=== PATIENT | female | born 1960 | race Hispanic/Latino ===

== ENCOUNTER 2019-05-13 15:43 | Emergency (ER) | payer SELFPAY ==
[~2019-05-13 15:43] MED LIST: ISOVUE-370 76%-LOCM 1 ML ONE
[2019-05-13] MEDS ORDERED: Ondansetron ODT 4 MG TAB ONE (16:25)
[2019-05-13] MEDS ORDERED: HYDROcodone/Acetaminophen 5/325 mg Tablet ONE (16:25)
[2019-05-13 16:34] LABS: Bilirubin Negative (Negative); Blood, Urine Negative (Negative); Clarity Clear (Clear); Glucose, Urine (Dipstick) Normal (Negative); Leukocyte 75 Leu/uL (Negative); Nitrite Negative (Negative); Protein, Urine (Dipstick) 50 mg/dL (Neg-Trace); Urobilinogen 6 mg/dL (Less than 2)
[2019-05-13 16:35] LABS: Bacteria/HPF 1+ HPF (None Seen)
[2019-05-13 17:17] LABS: Hemoglobin 11.8 g/dL (12.0-16.0); Mean Corpuscular HGB CONC 35.2 g/dL (32.0-36.0); RBC Distribution Width 11.5 % (11.5-14.5); Red Blood Cell (RBC) Count 3.27 mill/uL (4.20-5.40); White Blood Cell (WBC) Count 7.1 thou/uL (4.8-10.8)
[2019-05-13 17:41] LABS: ALT (SGPT) 18 U/L (8-55); AST (SGOT) 24 U/L (5-34); Albumin 4.1 g/dL (3.5-5.0); Alkaline Phosphatase 62 U/L (40-150); Anion Gap 12 mmol/L (10-20); BUN (Urea Nitrogen) 12 mg/dL (9.8-20.1); Bilirubin, Total 1.4 mg/dL (0.2-1.2); Calc. Creatinine Clearance 0 mL/min (70-130); Calcium 9.5 mg/dL (7.8-10.44); Carbon Dioxide 24 mmol/L (22-29); Chloride 93 mmol/L (98-107); Estimated GFR-MDRD 71; Glucose 102 mg/dL (70-105); Lipase 23 U/L (8-78); Potassium 3.2 mmol/L (3.5-5.1); Protein, Total 8.1 g/dL (6.0-8.3); Sodium 126 mmol/L (136-145)
[2019-05-13 17:42] LABS: #Basophils 0.1 thou/uL (0.0-0.2); #Lymphocytes 0.5 thou/uL (1.20-3.40); #Monocytes 0.8 thou/uL (0.11-0.59); #Neutrophils 5.8 thou/uL (1.40-6.50); %Basophils 0.7 % (0.0-1.0); %Eosinophils 0.4 % (0.0-10.0); %Monocytes 10.9 % (0.0-10.0); %Neutrophils 81.1 % (42.0-75.0); Mean Platelet Volume 8.4 fL (7.4-10.4); Platelet Count 108 thou/uL (130-400); Platelet Morphology Comment Appears Decreased
--- NOTE | 2019-05-13 18:29 | CT ---
ABDOMEN CT WITH CONTRAST PELVIC CT WITH CONTRAST: 05/13/19 HISTORY: Fever, chills. Abdominal pain. Dysuria. COMPARISON: None. FINDINGS: Scarring and atelectasis in the right lower lobe. There is a bleb in the left lower lobe measuring 1. 4 cm. Incompletely evaluated opacity in what is likely the middle lobe. Dedicated chest radiograph is recom mended. Heart size is within normal limits. No pericardial effusion. The visualized aorta has a dora l caliber. No periaortic fat stranding. Portal vein is patent. Mild enhancement of the gallbladder wall with a small amount of pericholecysti c fluid. Liver, spleen, pancreas, and adrenal glands have appropriate attenuation and enhancement. No gastrohepatic, retrocrural or periportal lymphadenopathy. There are nonspecific pericaval and zane rohepatic lymph nodes. Nonspecific lymph node in the gastrohepatic region measures 0.8 cm in maximum dimension. No mesenteric mass, lymphadenopathy, free air or free fluid. Symmetric enhancement of the kidneys. Bilaterally, no obstructive uropathy. Limited evaluation of the alimentary canal by lack of oral contrast. Multiple normal caliber small ruma wel loops. Ileocecal junction is normal. Normal caliber appendix is identified. Fecal material in a n ondistended, nondilated colon. Occasional diverticulum. No diverticulitis. PELVIC CT: Decompressed urinary bladder. No pelvic mass, lymphadenopathy, free air or free fluid. Hysterectomy c hanges are noted. OSSEOUS STRUCTURES: There are no lytic or blastic lesions. IMPRESSION: 1. Enhancement of the gallbladder wall with pericholecystic fluid. Right upper quadrant ultrasou nd is recommended to assess for cholecystitis. 2. Focal opacity in the right lung, likely representing a middle lobe infiltrate. Incomplete toño luation. Chest radiograph is recommended. POS: PPP
--- NOTE | 2019-05-13 18:48 | RAD ---
RADIOGRAPH CHEST 2 VIEW: DATE: 05/13/2019 TIME: 6:39 PM HISTORY: 58-year-old female with fever and chills COMPARISON: 08/24/2012 FINDINGS: There is a new finding of a wedge-shaped pulmonary opacity at the right midlung zone with broad base against the lateral pleural surface and broad base against the undersurface of the minor fissure.. This corresponds to what was seen on the abdominal CT today. The rest of the lungs are clear. No pleu ral effusion, cardiomegaly, pneumothorax, or pulmonary edema. IMPRESSION: Focal wedge-shaped opacity at the lateral aspect of the right middle lobe. Differential diagnosis inc ludes: Subsegmental atelectasis, pneumonia, and pulmonary infarction.
== END 2019-05-13 18:50 | disposition home or self-care (01) ==
LOC: ERS 15:43
DX: J18.9 Pneumonia, unspecified organism (principal); I10 Essential (primary) hypertension; F17.210 Nicotine dependence, cigarettes, uncomplicated; Z79.899 Other long term (current) drug therapy; Z71.6 Tobacco abuse counseling
CPT/HCPCS: 36415; 71046; 74177; 80053; 81003; 81015; 83605; 83690; 85025; 87040; 87086; 99406; Q0162

== ENCOUNTER 2019-05-16 16:15 | Inpatient (IN) | payer SELFPAY ==
[2019-05-16 17:54] LABS: Hemoglobin 11.4 g/dL (12.0-16.0); Mean Corpuscular HGB CONC 34.6 g/dL (32.0-36.0); Mean Corpuscular Hemoglobin 35.1 pg (27.0-31.0); Mean Platelet Volume 8.7 fL (7.4-10.4); Platelet Count 133 thou/uL (130-400); RBC Distribution Width 11.8 % (11.5-14.5); Red Blood Cell (RBC) Count 3.24 mill/uL (4.20-5.40); White Blood Cell (WBC) Count 4.6 thou/uL (4.8-10.8)
[2019-05-16 18:15] LABS: ALT (SGPT) 33 U/L (8-55); AST (SGOT) 51 U/L (5-34); Albumin 3.9 g/dL (3.5-5.0); Alkaline Phosphatase 72 U/L (40-150); Anion Gap 13 mmol/L (10-20); BUN (Urea Nitrogen) 35 mg/dL (9.8-20.1); Bilirubin, Total 0.5 mg/dL (0.2-1.2); Calc. Creatinine Clearance 0 mL/min (70-130); Calcium 9.8 mg/dL (7.8-10.44); Carbon Dioxide 23 mmol/L (22-29); Chloride 94 mmol/L (98-107); Estimated GFR-MDRD 40; Globulin 4.2 g/dL (2.4-3.5); Glucose 91 mg/dL (70-105); Lipase 91 U/L (8-78); Potassium 3.1 mmol/L (3.5-5.1); Protein, Total 8.1 g/dL (6.0-8.3); Sodium 127 mmol/L (136-145)
[2019-05-16 18:19] LABS: Band 6 % (5-11); Eosinophils 3 % (0-10); Lymphocytes 20 % (21-51); MDiff Complete? YES; Macrocytosis SLIGHT = 6-15 cells (100X) (0-5/hpf); Monocytes 20 % (0-10); Neutrophil 43 % (42-75); Platelet Morphology Comment Appears Adequate; Polychromasia SLIGHT = 2-3 cells (100X) (0-2/hpf); Reactive Lymphocytes 8 % (0-10)
[2019-05-16 18:37] LABS: MONO NEGATIVE CONTROL ZONE White (Negative) (White); MONO POSITIVE CONTROL Pink Line (Positive) (PINK/RED); Mononucleosis NEGATIVE (NEGATIVE)
[2019-05-16] MEDS ORDERED: Morphine 4 MG/ML VIAL ONE (18:50)
[2019-05-16] MEDS ORDERED: Ondansetron PF 4 MG/2 ML Vial ONE (18:51)
--- NOTE | 2019-05-16 19:59 | ULT ---
GALLBLADDER ULTRASOUND: History: Right upper quadrant pain. Comparison: 05-13-19 CT study. FINDINGS: Real-time imaging of the right upper quadrant shows a thick walled gallbladder. The wall measures in the 5 mm range. There is some small nonshadowing echogenic densities along the gallbladder wall which could represent adherent nonshadowing cholesterol stones versus small polyps. The common duct is 3 m m. The liver measures 14 cm in length. It is of increased echogenicity suggesting fatty change. The pancreas is obscured. Right kidney is not obstructed. IMPRESSION: 1. Thick walled gallbladder. There are some nonshadowing echogenic foci along the gallbladder wall wh ich do not move with changes in patient positioning. This could indicate small polyps, less likely no nshadowing cholesterol type stones. 2. Fatty change of the liver. POS: MARIA GUADALUPE
[2019-05-16 20:21] LABS: Bilirubin Negative (Negative); Blood, Urine Negative (Negative); Clarity Turbid (Clear); Glucose, Urine (Dipstick) Normal (Negative); Leukocyte 25 Leu/uL (Negative); Nitrite Negative (Negative); Protein, Urine (Dipstick) 30 mg/dL (Neg-Trace); RBC/HPF 0-3 HPF (0-3); Squamous Epithelial 0-3 HPF (0-3)
[2019-05-16 20:24] LABS: Bacteria/HPF 1+ HPF (None Seen)
--- NOTE | 2019-05-16 20:59 | RAD ---
XR Chest Pa Lat STANDARD HISTORY: Cough and fever COMPARISON: 05/13/2019 study FINDINGS: Heart size slightly enlarged. There is a worsening lateral segment right middle lobe infilt rate present. The left lung is clear. IMPRESSION: Increased opacification within the right middle lobe consistent with increasing infiltrat e.
[2019-05-16 23:32] VITALS: BMI 24.3
[2019-05-16] MEDS ORDERED: Cefepime 2 GM in Sodium Chloride 0.9% 100 ML IVPB SCH (23:59)
--- NOTE | 2019-05-17 00:08 | PDOC.EVN ---
Event Note - Event Note Event Note: H&P dictated 189097
--- NOTE | 2019-05-17 00:44 | HP ---
CHIEF COMPLAINT: Fever. HISTORY OF PRESENT ILLNESS: Ms. Santiago is a 58-year-old female with past medical history of alcohol abuse, hypertension, presented to the emergency room for the second time in the same week with persistent fever, cough combined with sputum, chills and shortness of breath. The patient recently was in the emergency room and was diagnosed with pneumonia and was sent home on [employer]. The patient took the antibiotic without any improvement. Workup in the emergency room showed worsening of right middle lobe consolidation. Septic workup done in the ED. The patient is on IV antibiotics. The patient is being admitted to the hospital for further management. PAST MEDICAL HISTORY: Hypertension. PAST SURGICAL HISTORY: 1. Appendectomy. 2. Hysterectomy. SOCIAL HISTORY: She drinks alcohol every day, about 5 drinks a day. She denies other drug abuse. She smokes half to one pack a day. ALLERGIES: ALLERGIC TO CODEINE? HOME MEDICATIONS: Please see home medication reconciliation form for updated medications. FAMILY HISTORY: Reviewed and noncontributory. REVIEW OF SYSTEMS: Review of 14 systems negative except what is mentioned in the history of present illness. PHYSICAL EXAMINATION: GENERAL: The patient is awake, alert, in mild distress. VITAL SIGNS: Blood pressure 130/73, pulse is 69, respiratory rate is 20, pulse oximetry is 98% on room air. HEAD: Normocephalic, atraumatic. NECK: Supple. No JVD. CHEST: Bronchial breath sounds, right chest anteriorly. HEART: S1, S2. Regular. ABDOMEN: Soft. Right upper quadrant tenderness. Bowel sounds present NEUROLOGIC: Awake, alert, oriented x3. PSYCHIATRIC: Normal mood. EXTREMITIES: No clubbing, or cyanosis. LABORATORY DATA: WBC count 4.6, hemoglobin 11.4, platelets 133. Sodium is 127, potassium 3.1, glucose is 91, BUN is 35, creatinine 1.3. Chest x-ray shows worsening of the right middle lobe opacifications. Abdominal ultrasound was done, which showed thickened gallbladder with echogenic foci along the gallbladder, which did not move with change in patient position. This could indicate small polyps, less likely non-shadowing cholesterol type stones. ASSESSMENT: 1. Pneumonia, community-acquired, failed outpatient therapy. 2. Abdominal pain. 3. Hypokalemia. 4. Hyponatremia. 5. Acute kidney injury. 6. Hypertension. 7. Alcohol abuse. PLAN: 1. Admit. 2. Septic workup including blood cultures. 3. IV antibiotics. The patient has failed outpatient therapy with azithromycin. 4. IV fluids. 5. Reconcile home medications. 6. DVT prophylaxis. Early ambulation. 7. Expected length of stay 2 midnights or more. Job ID: [id number]
[2019-05-17] MEDS: Sodium Chloride 0.9% 1,000 ML IV SCH ×3 (00:54→21:03)
[2019-05-17] MEDS ORDERED: Vancomycin HCl 1 GM in Premix Bag 1 BAG IVPB SCH (01:00)
[2019-05-17] MEDS: Temazepam 15 MG CAP PO PRN ×2 (01:18→21:03)
[2019-05-17 06:28] LABS: Anion Gap 10 mmol/L (10-20); BUN (Urea Nitrogen) 24 mg/dL (9.8-20.1); Calc. Creatinine Clearance 80 mL/min (70-130); Carbon Dioxide 23 mmol/L (22-29); Chloride 101 mmol/L (98-107); Estimated GFR-MDRD 80; Glucose 78 mg/dL (70-105); Potassium 3.2 mmol/L (3.5-5.1); Sodium 131 mmol/L (136-145)
[2019-05-17 07:27] LABS: Band 3 % (5-11); Eosinophils 5 % (0-10); Hemoglobin 10.9 g/dL (12.0-16.0); Lymphocytes 31 % (21-51); MDiff Complete? YES; Macrocytosis SLIGHT = 6-15 cells (100X) (0-5/hpf); Mean Corpuscular HGB CONC 34.6 g/dL (32.0-36.0); Mean Corpuscular Hemoglobin 35.2 pg (27.0-31.0); Mean Platelet Volume 8.9 fL (7.4-10.4); Monocytes 21 % (0-10); Neutrophil 40 % (42-75); Platelet Count 109 thou/uL (130-400); Platelet Morphology Comment Appears Decreased; Polychromasia SLIGHT = 2-3 cells (100X) (0-2/hpf); RBC Distribution Width 11.8 % (11.5-14.5); Red Blood Cell (RBC) Count 3.09 mill/uL (4.20-5.40); White Blood Cell (WBC) Count 2.9 thou/uL (4.8-10.8)
[2019-05-17] MEDS ORDERED: Carvedilol 6.25 MG TAB PO SCH (10:45)
[2019-05-17] MEDS ORDERED: Lisinopril 20 MG TAB PO SCH (10:45)
--- NOTE | 2019-05-17 11:59 | PDOC.EVN ---
Event Note - Event Note Event Note: Seen and examined. Patient asks for Nicotine patch. Walking the halls, breathing well on room air. States that she is feeling better than when she first came into the hospital. Feeling weak overall. Likely D/c in the next 24- 48 hours if continues to improve.
[2019-05-17] MEDS: Nicotine 14 MG PATCH TD SCH (12:02)
[2019-05-17] MEDS: Acetaminophen 325 MG TAB PO PRN (14:27)
[2019-05-18] MEDS: Sodium Chloride 0.9% 1,000 ML IV SCH (06:15)
[2019-05-18 07:53] VITALS: TEMP 98.1
[2019-05-18] MEDS ORDERED: Lisinopril 20 MG TAB PO SCH (09:00)
[2019-05-18] MEDS ORDERED: Carvedilol 6.25 MG TAB PO SCH (09:00)
[2019-05-18] MEDS: Acetaminophen 325 MG TAB PO PRN (09:49)
[2019-05-18] MEDS ORDERED: Potassium Chloride 20 MEQ TAB PO SCH (10:00)
--- NOTE | 2019-05-18 12:11 | DIS ---
DATE OF ADMISSION: 05/16/2019 DATE OF DISCHARGE: 05/18/2019 PRIMARY CARE PHYSICIAN: Zoey Fletcher, nurse practitioner at [facility]. CHIEF COMPLAINT/REASON FOR ADMISSION: Fever. PRINCIPAL DIAGNOSIS ON ADMISSION: Community-acquired pneumonia, with failure of outpatient therapy. DISCHARGE DIAGNOSES: 1. Community-acquired pneumonia, right middle lobe, in the context of tobacco dependence and alcohol dependence. 2. Abdominal pain, resolved. 3. Hypokalemia, persistent. 4. Hyponatremia, improved. 5. Acute kidney injury in the context of hypovolemia/dehydration, improved. 6. Essential hypertension. 7. Leukopenia, likely secondary to chronic alcohol abuse. 8. Macrocytosis, secondary to chronic alcohol abuse. STUDIES/PROCEDURES: Chest x-ray on 05/16/2019, right middle lobe opacification/infiltrate. HOSPITAL COURSE: Ms. Santiago is a pleasant 58-year-old female, with medical comorbidities including tobacco dependence, as well as alcohol abuse and essential hypertension. She presented to the emergency room for the second time in the same week, complaining of fever, cough/sputum, chills, and dyspnea. She had previously been seen in the ER, diagnosed with pneumonia, and received azithromycin course. Despite taking the medications, reported no interval improvement. She returned to the emergency department, admission recommended. She was placed on IV antibiotic therapy. Additionally, on admission noted to have mild hyponatremia with a serum sodium of 127. BUN 35 and creatinine 1.36 on admission, improved to 24 and 0.75 after IV fluids as above. Additionally, serum sodium 132 on the following hospital day. She has no oxygen requirement, and does feel improved today relative to her admission. She has manifested no fever during her in-hospital stay. Her white blood cell count on admission was 4.6, is 2.9 at the time of discharge. MCV 102 , all likely reflective of her underlying alcohol abuse. 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 She is tolerating a diet, able to tolerate oral antibiotics, is up walking in the halls, and has no oxygen requirement. Accordingly, appears stable at this time for transition to home in the care of her family. Prior to discharge, Pneumovax recommended/ordered. Additionally, oral potassium repletion recommended and ordered. PHYSICAL EXAMINATION: LUNGS: With good aeration bilaterally, some adventitial breath sounds in the right middle lobe. No dullness. No egophony. HEART: Regular rate and rhythm. EXTREMITIES: No significant lower extremity edema. MEDICATIONS AT DISCHARGE: As follows; 1. Augmentin 875/125 one p.o. b.i.d. for 5 days. 2. Carvedilol 12.5 mg p.o. daily (this is her home medication). 3. Lisinopril/hydrochlorothiazide 20/25 one p.o. once daily, same as admission. Over the counter nicotine patches. Education provided regarding alcohol cessation and nicotine cessation. These remained her risk factors for recurrent pneumonia. DIET: Regular diet as tolerated. ACTIVITY: As tolerated. FOLLOWUP: Follow up with KEYANA Jimenez in 1 week. TIME SPENT: Time spent on discharge planning/care today is 45 minutes. Job ID: [id number] MTDD
[2019-05-18 12:12] VITALS: BP 109/71
[2019-05-18] MEDS: Nicotine 14 MG PATCH TD SCH (12:24)
--- NOTE | 2019-05-19 05:15 | PQF ---
ALLEN POND KATE [id number] CLINICAL DOCUMENTATION CLARIFICATION FORM: POST DISCHARGE Addendum to original discharge summary date: ____ Late entry note date: __ DATE: 05-19-2019 ATTN: Aniyah Arambula Please exercise your independent, professional judgment in responding to the clarification form. Clinical indicators are provided on the bottom of this form for your review Based on the below indicators please clarify what the patient actually has Please check appropriate box(es): [ ] Sepsis due to: Community Acquired Pneumonia [ x ] Localized infection without sepsis [ ] Other diagnosis please specify: Does not meet sepsis criteria [ ] Unable to determine In addition, please specify: Present on Admission (POA): [ ] Yes [ ] No [ ] Unable to determine For continuity of documentation, please document condition throughout progress notes and discharge summary. Thank You. CLINICAL INDICATORS: HP 05/[address] Manzano persistent fever, cough combined with sputum, chills and SOB HP 05/[address] Manzano took antibiotic without any improvement DS 05/[address] García Community Acquired Pneumonia, with failure of outpatient therapy DS 05/[address] García Acute kidney injury in the context of hypovolemia/ dehydration, improved DS 05/[address] García Leukopenia likely secondary to chronic alcohol abuse Laboratory WBC=4.6, 2.9 Vital signs:HR=921/73, 119/80, 116/71, 95/60 Pulse=69, 72, 69, 74 Respi=20, 18, 21, 19 temp=98.9 RISK FACTORS: ZAYDA Manzano- Alcohol abuse HP Dr. Manzano- History of Pneumonia TREATMENTS: ZAYDA Manzano- Septic work up done in ED including blood cultures HP Dr. Manzano-IV fluids Imaging- Chest Xray Imaging- Abdominal Ultrasound NOV 07- Levaquin 750 mg IV NOV 07- Maxipime 2 gm IV (This form is maintained as a part of the permanent medical record) 2014 [employer]. All Rights Reserved Cristina [email or web address] [not provided] MTDD
== END 2019-05-18 12:57 | disposition home or self-care (01) | DRG 194 ==
LOC: ERS 16:15 → T4-B 21:29
PROVIDERS: ADMIT Internal Medicine; ATTEND Internal Medicine
DX: J18.1 Lobar pneumonia, unspecified organism (principal); E87.1 Hypo-osmolality and hyponatremia; N17.9 Acute kidney failure, unspecified; I10 Essential (primary) hypertension; E87.6 Hypokalemia; F10.20 Alcohol dependence, uncomplicated; R10.9 Unspecified abdominal pain; E86.1 Hypovolemia; E86.0 Dehydration; D72.818 Other decreased white blood cell count; D75.89 Other specified diseases of blood and blood-forming organs; F17.210 Nicotine dependence, cigarettes, uncomplicated; Z87.01 Personal history of pneumonia (recurrent); Z90.49 Acquired absence of other specified parts of digestive tract; Z90.710 Acquired absence of both cervix and uterus; Z79.899 Other long term (current) drug therapy; Z88.5 Allergy status to narcotic agent
CPT/HCPCS: 36415; 71046; 76705; 80048; 80053; 81003; 81015; 83690; 85025; 86308; 87040; 87070; 87205; 90471; 90732; 93005; 96361; 96365; G0009; J0692; J1956; J2270; J2405; J3370; J3490

== ENCOUNTER 2019-06-01 15:10 | Outpatient (CLI) | payer OTHER ==
--- NOTE | 2019-06-01 16:03 | RAD ---
TWO VIEW CHEST: 06/01/19 INDICATION: Follow-up pneumonia. COMPARISON: 05/16/19 The confluent infiltrate in the right middle lobe is again seen although it is less dense today marc cating interval improvement. Interstitial markings are increased bilaterally and stable. Heart and mediastinum unremarkable. No ef fusion. IMPRESSION: Persistent right middle lobe infiltrate although there is evidence of interval improvement when devaughn red to prior exam. Continued follow-up recommended. POS: MARIA GUADALUPE
== END 2019-06-01 15:11 | disposition home or self-care (01) ==
LOC: BICRAD 15:10
PROVIDERS: ATTEND Nurse Practitioner Family
DX: Z09 Encounter for follow-up examination after completed treatment for conditions other than malignant neoplasm (principal); R91.8 Other nonspecific abnormal finding of lung field; Z87.01 Personal history of pneumonia (recurrent)
CPT/HCPCS: 71046

== ENCOUNTER 2019-06-30 23:14 | Emergency (ER) | payer SELFPAY ==
--- NOTE | 2019-06-30 23:49 | CT ---
CT Brain WO Con: 06/30/2019 12:00 AM CLINICAL HISTORY: History of fall. IMAGING TECHNIQUE: Multiple CT images were obtained of the brain without IV contrast. COMPARISON: CT the brain dated August 24, 2012 FINDINGS: Brain: No acute infarct or hemorrhage is evident. No midline shift. Small perivascular space versus remote lacunar infarct involving the right globus pallidus is stable. Ventricles: Normal. No hydrocephalus.. Skull: Intact.. Visualized Paranasal sinuses: Clear.. Mastoid air cells:Clear. Extracranial soft tissues:Normal. IMPRESSION: No acute intracranial abnormality.
[2019-07-01] MEDS ORDERED: Acetaminophen 500 MG TAB ONE (00:16)
== END 2019-07-01 00:25 | disposition home or self-care (01) ==
LOC: ERS 23:14
DX: S09.90XA Unspecified injury of head, initial encounter (principal); F10.129 Alcohol abuse with intoxication, unspecified; Y90.8 Blood alcohol level of 240 mg/100 ml or more; F17.210 Nicotine dependence, cigarettes, uncomplicated; I10 Essential (primary) hypertension; Z87.01 Personal history of pneumonia (recurrent); Z79.899 Other long term (current) drug therapy; W17.89XA Other fall from one level to another, initial encounter
CPT/HCPCS: 36415; 70450; 80307

== ENCOUNTER 2022-01-04 13:20 | Emergency (ER) | payer SELFPAY ==
[2022-01-04 14:08] LABS: #Eosinphils 0.1 thou/uL (0.0-0.7); #Lymphocytes 0.8 thou/uL (1.20-3.40); #Monocytes 0.4 thou/uL (0.11-0.59); #Neutrophils 2.8 thou/uL (1.40-6.50); %Basophils 0.4 % (0.0-1.0); %Eosinophils 1.5 % (0.0-10.0); %Lymphocytes 18.8 % (21.0-51.0); %Monocytes 9.3 % (0.0-10.0); Hemoglobin 7.5 g/dL (12.0-16.0); Mean Corpuscular HGB CONC 33.2 g/dL (32.0-36.0); Mean Corpuscular Hemoglobin 30.2 pg (27.0-31.0); Mean Corpuscular Volume 90.9 fL (78.0-98.0); Mean Platelet Volume 8.6 fL (7.4-10.4); Platelet Count 153 thou/uL (130-400); RBC Distribution Width 15.1 % (11.5-14.5); Red Blood Cell (RBC) Count 2.48 mill/uL (4.20-5.40)
[2022-01-04 14:29] LABS: ALT (SGPT) 9 U/L (8-55); AST (SGOT) 24 U/L (5-34); Albumin 3.6 g/dL (3.5-5.0); Alkaline Phosphatase 69 U/L (40-110); Anion Gap 18 mmol/L (10-20); BUN (Urea Nitrogen) 14 mg/dL (9.8-20.1); Bilirubin, Total 0.6 mg/dL (0.2-1.2); Calc. Creatinine Clearance 0 mL/min (70-130); Calcium 8.6 mg/dL (7.8-10.44); Carbon Dioxide 22 mmol/L (22-29); Chloride 94 mmol/L (98-107); Globulin 4.6 g/dL (2.4-3.5); Glucose 81 mg/dL (70-105); Lipase 62 U/L (8-78); Potassium 3.1 mmol/L (3.5-5.1); Protein, Total 8.2 g/dL (6.0-8.3); Sodium 131 mmol/L (136-145)
[2022-01-04] MEDS ORDERED: Ondansetron ODT 8 MG TAB ONE ×2 (14:50)
[2022-01-04] MEDS ORDERED: Ondansetron ODT 4 MG TAB ONE (14:51)
== END 2022-01-04 15:15 | disposition home or self-care (01) ==
LOC: ERS 13:20
DX: D64.9 Anemia, unspecified (principal); I10 Essential (primary) hypertension; F17.210 Nicotine dependence, cigarettes, uncomplicated
CPT/HCPCS: 36415; 71045; 80053; 83690; 84484; 85025; 93005; Q0162

== ENCOUNTER 2022-01-21 11:41 | Inpatient (IN) | payer SELFPAY ==
[2022-01-21 12:16] LABS: #Lymphocytes 0.8 thou/uL (1.20-3.40); #Monocytes 0.3 thou/uL (0.11-0.59); #Neutrophils 1.6 thou/uL (1.40-6.50); %Basophils 1.7 % (0.0-1.0); %Eosinophils 1.6 % (0.0-10.0); %Lymphocytes 28.6 % (21.0-51.0); %Monocytes 10.6 % (0.0-10.0); %Neutrophils 57.6 % (42.0-75.0); Mean Corpuscular HGB CONC 30.9 g/dL (32.0-36.0); Mean Corpuscular Hemoglobin 28.5 pg (27.0-31.0); Mean Platelet Volume 8.2 fL (7.4-10.4); Platelet Count 127 thou/uL (130-400); RBC Distribution Width 20.2 % (11.5-14.5); White Blood Cell (WBC) Count 2.8 thou/uL (4.8-10.8)
[2022-01-21] MEDS ORDERED: Nitroglycerin 2% Ointment 1 INCH/1 GM Packet ONE ×2 (12:32→17:52)
[2022-01-21 12:37] LABS: ALT (SGPT) 7 U/L (8-55); AST (SGOT) 22 U/L (5-34); Albumin 3.4 g/dL (3.5-5.0); Alkaline Phosphatase 58 U/L (40-110); Anion Gap 14 mmol/L (10-20); BUN (Urea Nitrogen) 8 mg/dL (9.8-20.1); Bilirubin, Total 0.5 mg/dL (0.2-1.2); Calc. Creatinine Clearance 0 mL/min (70-130); Carbon Dioxide 23 mmol/L (22-29); Chloride 97 mmol/L (98-107); Globulin 4.6 g/dL (2.4-3.5); Glucose 79 mg/dL (70-105); Lipase 46 U/L (8-78); Sodium 131 mmol/L (136-145)
[2022-01-21] MEDS ORDERED: Furosemide 100 MG/10 ML VIAL ONE (16:48)
[2022-01-21] MEDS ORDERED: Morphine 4 MG/ML VIAL ONE (17:52)
[2022-01-21 18:01] LABS: Troponin I 0.021 ng/mL (< 0.028)
[2022-01-21] MEDS ORDERED: Electrolyte Replacement Protocol 1 EACH FS SCH (20:15)
[2022-01-21] MEDS ORDERED: Ondansetron ODT 4 MG TAB PO PRN (20:30)
[2022-01-21] MEDS ORDERED: Ondansetron PF 4 MG/2 ML Vial IVP PRN (20:30)
[2022-01-21] MEDS ORDERED: Acetaminophen 650 MG Suppository PR PRN (20:30)
[2022-01-21 20:34] LABS: Troponin I 0.023 ng/mL (< 0.028)
[2022-01-21 20:35] LABS: Magnesium 1.1 mg/dL (1.6-2.6)
[2022-01-21] MEDS: Nicotine 14 MG PATCH TD SCH (20:44)
[2022-01-21] MEDS: Carvedilol 6.25 MG TAB PO SCH (20:45)
[2022-01-21] MEDS: Benzonatate 100 MG CAP PO PRN (20:45)
[2022-01-21] MEDS ORDERED: methylPREDNISolone Sod Succ 40 MG VIAL IVP SCH (20:45)
[2022-01-21] MEDS ORDERED: cefTRIAXone\\ROCEPHIN 1 GM in Sodium Chloride 0.9% 100 ML IVPB SCH (21:00)
[2022-01-21] MEDS ORDERED: Magnesium Sulfate In Water 4 GM in Premix Bag 1 BAG IVPB SCH (22:30)
[2022-01-21] MEDS ORDERED: Potassium Chloride 20 MEQ TAB PO SCH (23:15)
[2022-01-22] MEDS ORDERED: Potassium Chloride 20 MEQ in Premix Bag 1 BAG IVPB SCH
[2022-01-22 03:59] LABS: #Lymphocytes 0.3 thou/uL (1.20-3.40); #Neutrophils 1.9 thou/uL (1.40-6.50); %Eosinophils 0.4 % (0.0-10.0); %Lymphocytes 14.8 % (21.0-51.0); %Monocytes 1.9 % (0.0-10.0); Hemoglobin 8.2 g/dL (12.0-16.0); Mean Corpuscular HGB CONC 31.9 g/dL (32.0-36.0); Mean Corpuscular Hemoglobin 29.3 pg (27.0-31.0); Mean Platelet Volume 8.8 fL (7.4-10.4); Platelet Count 140 thou/uL (130-400); RBC Distribution Width 20.2 % (11.5-14.5); Red Blood Cell (RBC) Count 2.81 mill/uL (4.20-5.40); White Blood Cell (WBC) Count 2.3 thou/uL (4.8-10.8)
[2022-01-22 04:21] LABS: Anion Gap 15 mmol/L (10-20); BUN (Urea Nitrogen) 11 mg/dL (9.8-20.1); Calc. Creatinine Clearance 75 mL/min (70-130); Calcium 9.3 mg/dL (7.8-10.44); Carbon Dioxide 25 mmol/L (22-29); Chloride 95 mmol/L (98-107); Glucose 139 mg/dL (70-105); Iron 66 ug/dL (50-170); Iron Binding Capacity, Total 426 mcg/dL (265-497); Potassium 3.4 mmol/L (3.5-5.1); Sodium 132 mmol/L (136-145)
[2022-01-22] MEDS: Acetaminophen 325 MG TAB PO PRN ×2 (05:52→18:20)
[2022-01-22] MEDS ORDERED: Potassium Chloride 20 MEQ TAB PO SCH (08:00)
[2022-01-22] MEDS ORDERED: Furosemide 40 MG/4 ML VIAL SLOW IVP SCH (09:30)
[2022-01-22] MEDS: Carvedilol 6.25 MG TAB PO SCH ×2 (10:43→20:12)
[2022-01-22] MEDS: Enoxaparin Sodium 40 MG/0.4 ML SYRINGE SC SCH (10:43)
[2022-01-22] MEDS: [UNRECOGNIZED DRUG - REMARK] PO SCH (10:45)
[2022-01-22] MEDS: methylPREDNISolone Sod Succ 40 MG VIAL IVP SCH (10:45)
[2022-01-22] MEDS: Lisinopril/Hydrochlorothiazide 20 mg/12.5 mg Tablet PO SCH (10:45)
[2022-01-22] MEDS: Benzonatate 100 MG CAP PO PRN ×2 (10:53→20:12)
[2022-01-22 11:59] LABS: SARS-CoV-2 PCR by NAA Not Detected (NotDetected)
[2022-01-22 15:30] VITALS: BMI 23.3
[2022-01-22] MEDS: Nicotine 14 MG PATCH TD SCH (20:12)
[2022-01-22] MEDS: Lorazepam 1 MG TAB PO PRN (22:26)
[2022-01-23 04:30] LABS: #Lymphocytes 1.1 thou/uL (1.20-3.40); #Monocytes 0.4 thou/uL (0.11-0.59); #Neutrophils 3.1 thou/uL (1.40-6.50); %Basophils 0.2 % (0.0-1.0); %Eosinophils 0.2 % (0.0-10.0); %Lymphocytes 24.1 % (21.0-51.0); %Monocytes 9.3 % (0.0-10.0); %Neutrophils 66.2 % (42.0-75.0); Hemoglobin 7.9 g/dL (12.0-16.0); Mean Corpuscular HGB CONC 31.6 g/dL (32.0-36.0); Mean Corpuscular Hemoglobin 29.6 pg (27.0-31.0); Mean Corpuscular Volume 93.7 fL (78.0-98.0); Mean Platelet Volume 9.2 fL (7.4-10.4); Platelet Count 137 thou/uL (130-400); Red Blood Cell (RBC) Count 2.68 mill/uL (4.20-5.40); White Blood Cell (WBC) Count 4.7 thou/uL (4.8-10.8)
[2022-01-23 04:57] LABS: Anion Gap 12 mmol/L (10-20); BUN (Urea Nitrogen) 21 mg/dL (9.8-20.1); Calc. Creatinine Clearance 54 mL/min (70-130); Carbon Dioxide 26 mmol/L (22-29); Chloride 98 mmol/L (98-107); Glucose 84 mg/dL (70-105); Magnesium 1.7 mg/dL (1.6-2.6); Potassium 3.4 mmol/L (3.5-5.1); Sodium 133 mmol/L (136-145)
[2022-01-23] MEDS ORDERED: Magnesium 2 GM/50 ML(in water) 2 GM in Premix Bag 1 BAG IVPB SCH (06:30)
[2022-01-23] MEDS ORDERED: Potassium Chloride 20 MEQ TAB PO SCH (08:45)
[2022-01-23] MEDS ORDERED: Furosemide 40 MG/4 ML VIAL SLOW IVP SCH (09:00)
[2022-01-23] MEDS: Lisinopril/Hydrochlorothiazide 20 mg/12.5 mg Tablet PO SCH (11:28)
[2022-01-23] MEDS: Carvedilol 6.25 MG TAB PO SCH ×2 (11:29→21:53)
[2022-01-23] MEDS: methylPREDNISolone Sod Succ 40 MG VIAL IVP SCH (11:30)
[2022-01-23] MEDS: Enoxaparin Sodium 40 MG/0.4 ML SYRINGE SC SCH (11:30)
[2022-01-23] MEDS: [UNRECOGNIZED DRUG - REMARK] PO SCH (11:31)
[2022-01-23] MEDS: Benzonatate 100 MG CAP PO PRN ×2 (11:35→21:53)
[2022-01-23] MEDS ORDERED: Iron, Sodium Ferric Gluconate 250 MG in Sodium Chloride 0.9% 250 ML 250 ML IVPB SCH ×2 (13:00→15:00)
[2022-01-23] MEDS: Furosemide 40 MG/4 ML VIAL SLOW IVP SCH (15:45)
[2022-01-23] MEDS: Acetaminophen 325 MG TAB PO PRN ×2 (16:03→21:50)
[2022-01-23] MEDS: Nicotine 14 MG PATCH TD SCH (21:54)
[2022-01-23] MEDS: Lorazepam 1 MG TAB PO PRN (21:54)
[2022-01-24 04:12] LABS: #Lymphocytes 1.2 thou/uL (1.20-3.40); #Monocytes 0.4 thou/uL (0.11-0.59); #Neutrophils 3.9 thou/uL (1.40-6.50); %Basophils 0.2 % (0.0-1.0); %Eosinophils 0.4 % (0.0-10.0); %Lymphocytes 21.5 % (21.0-51.0); %Monocytes 7.6 % (0.0-10.0); %Neutrophils 70.3 % (42.0-75.0); Hemoglobin 8.5 g/dL (12.0-16.0); Mean Corpuscular HGB CONC 31.4 g/dL (32.0-36.0); Mean Corpuscular Hemoglobin 29.7 pg (27.0-31.0); Mean Corpuscular Volume 94.6 fL (78.0-98.0); Mean Platelet Volume 9.1 fL (7.4-10.4); Platelet Count 139 thou/uL (130-400); Red Blood Cell (RBC) Count 2.86 mill/uL (4.20-5.40); White Blood Cell (WBC) Count 5.5 thou/uL (4.8-10.8)
[2022-01-24 04:31] LABS: Anion Gap 14 mmol/L (10-20); BUN (Urea Nitrogen) 27 mg/dL (9.8-20.1); Calc. Creatinine Clearance 53 mL/min (70-130); Carbon Dioxide 28 mmol/L (22-29); Chloride 97 mmol/L (98-107); Potassium 3.7 mmol/L (3.5-5.1); Sodium 135 mmol/L (136-145)
[2022-01-24 04:32] LABS: Calcium 9.1 mg/dL (7.8-10.44); Glucose 88 mg/dL (70-105)
[2022-01-24] MEDS: Lorazepam 1 MG TAB PO PRN (04:35)
[2022-01-24] MEDS: Furosemide 40 MG/4 ML VIAL SLOW IVP SCH ×2 (05:45→13:17)
[2022-01-24] MEDS: Lisinopril/Hydrochlorothiazide 20 mg/12.5 mg Tablet PO SCH (08:55)
[2022-01-24] MEDS: Enoxaparin Sodium 40 MG/0.4 ML SYRINGE SC SCH (08:56)
[2022-01-24] MEDS: Carvedilol 6.25 MG TAB PO SCH (08:56)
[2022-01-24] MEDS: [UNRECOGNIZED DRUG - REMARK] PO SCH (09:00)
[2022-01-24] MEDS ORDERED: Magnesium Oxide 400 MG TAB PO SCH (09:00)
[2022-01-24] MEDS: Benzonatate 100 MG CAP PO PRN (13:17)
[2022-01-24] MEDS ORDERED: Furosemide 20 MG TAB PO SCH (14:00)
[2022-01-24 16:48] VITALS: BP 148/74; TEMP 98
[2022-01-25] MEDS ORDERED: Potassium Chloride 20 MEQ TAB PO SCH (08:00)
== END 2022-01-24 17:08 | disposition home or self-care (01) | DRG 808 ==
LOC: ERS 11:41 → 2NO 18:00
PROVIDERS: ADMIT Emergency Medicine; ATTEND Emergency Medicine
DX: D61.818 Other pancytopenia (principal); Z20.822 Contact with and (suspected) exposure to COVID-19; J96.00 Acute respiratory failure, unspecified whether with hypoxia or hypercapnia; I50.31 Acute diastolic (congestive) heart failure; I31.3 Pericardial effusion (noninflammatory); E87.1 Hypo-osmolality and hyponatremia; I11.0 Hypertensive heart disease with heart failure; F10.10 Alcohol abuse, uncomplicated; I07.1 Rheumatic tricuspid insufficiency; E87.6 Hypokalemia; E83.42 Hypomagnesemia; K80.20 Calculus of gallbladder without cholecystitis without obstruction; D50.9 Iron deficiency anemia, unspecified; F17.210 Nicotine dependence, cigarettes, uncomplicated; Z87.01 Personal history of pneumonia (recurrent); Z90.49 Acquired absence of other specified parts of digestive tract; Z90.710 Acquired absence of both cervix and uterus; Z79.899 Other long term (current) drug therapy
CPT/HCPCS: 36415; 71045; 76705; 80048; 80053; 82607; 82728; 82746; 83540; 83550; 83690; 83735; 83880; 84484; 85025; 93005; 93306; 93798; 94640; 94760; 96374; 96375; J0696; J1650; J1940; J2270; J2916; J2920; J3475; J3490; J7050; J7620; U0003; U0005

== ENCOUNTER 2022-05-05 20:07 | Inpatient (IN) | payer OTHER, SELFPAY ==
[2022-05-05] MEDS ORDERED: Ondansetron PF 4 MG/2 ML Vial ONE (21:14)
[2022-05-05] MEDS ORDERED: Morphine 4 MG/ML VIAL ONE (21:14)
[2022-05-05 21:43] LABS: #Eosinphils 0.2 thou/uL (0.0-0.7); #Monocytes 0.4 thou/uL (0.11-0.59); #Neutrophils 2.7 thou/uL (1.40-6.50); %Basophils 1.1 % (0.0-1.0); %Eosinophils 4.9 % (0.0-10.0); %Monocytes 9.1 % (0.0-10.0); Hemoglobin 9.7 g/dL (12.0-16.0); Mean Corpuscular HGB CONC 35.6 g/dL (32.0-36.0); Mean Corpuscular Hemoglobin 33.7 pg (27.0-31.0); Mean Corpuscular Volume 94.7 fL (78.0-98.0); Mean Platelet Volume 9.5 fL (7.4-10.4); Platelet Count 120 thou/uL (130-400); RBC Distribution Width 13.9 % (11.5-14.5); Red Blood Cell (RBC) Count 2.87 mill/uL (4.20-5.40); White Blood Cell (WBC) Count 4.4 thou/uL (4.8-10.8)
[2022-05-05 22:03] LABS: ALT (SGPT) 9 U/L (8-55); AST (SGOT) 18 U/L (5-34); Albumin 4.1 g/dL (3.5-5.0); Alkaline Phosphatase 57 U/L (40-110); Anion Gap 19 mmol/L (10-20); BUN (Urea Nitrogen) 90 mg/dL (9.8-20.1); Bilirubin, Total 0.5 mg/dL (0.2-1.2); Calc. Creatinine Clearance 0 mL/min (70-130); Calcium 9.3 mg/dL (7.8-10.44); Carbon Dioxide 12 mmol/L (22-29); Chloride 109 mmol/L (98-107); Estimated GFR 20; Globulin 4.8 g/dL (2.4-3.5); Glucose 101 mg/dL (70-105); Lipase 106 U/L (8-78); Magnesium 1.5 mg/dL (1.6-2.6); Potassium 6.2 mmol/L (3.5-5.1); Protein, Total 8.9 g/dL (6.0-8.3); Sodium 134 mmol/L (136-145)
[2022-05-06] MEDS ORDERED: Acetaminophen 500 MG TAB ONE (00:20)
[2022-05-06] MEDS ORDERED: Piperacillin/Tazobactam 3.375 GM VIAL ONE (01:02)
[2022-05-06 01:34] LABS: Anion Gap 17 mmol/L (10-20); BUN (Urea Nitrogen) 77 mg/dL (9.8-20.1); Calc. Creatinine Clearance 0 mL/min (70-130); Carbon Dioxide 10 mmol/L (22-29); Chloride 116 mmol/L (98-107); Estimated GFR 22; Glucose 88 mg/dL (70-105); Potassium 5.7 mmol/L (3.5-5.1); Sodium 137 mmol/L (136-145)
[2022-05-06] MEDS ORDERED: Morphine 4 MG/ML VIAL SLOW IVP PRN (01:55)
[2022-05-06] MEDS ORDERED: Ondansetron ODT 4 MG TAB SL PRN (02:00)
[2022-05-06] MEDS ORDERED: Ondansetron PF 4 MG/2 ML Vial IVP PRN (02:00)
[2022-05-06] MEDS ORDERED: Sodium Chloride 0.9% 1,000 ML IV SCH ×2 (02:00→04:30)
[2022-05-06] MEDS ORDERED: Insulin Regular 300 UNITS/3 ML VIAL IVP SCH (02:30)
[2022-05-06] MEDS ORDERED: Sodium Bicarb 50 MEQ/50 ML VIAL IVP SCH (02:30)
[2022-05-06] MEDS ORDERED: Melatonin 3 MG TAB PO SCH (02:30)
[2022-05-06] MEDS ORDERED: Dextrose 50% Abboject 50 ML SYRINGE SLOW IVP SCH (02:30)
[2022-05-06 03:15] LABS: Bacteria/HPF None Seen HPF (None Seen); Bilirubin Negative (Negative); Blood, Urine Negative (Negative); Clarity Clear (Clear); Glucose, Urine (Dipstick) Normal (Negative); Ketone, Urine Negative (Negative); Leukocyte 25 Leu/uL (Negative); Nitrite Negative (Negative); Protein, Urine (Dipstick) Negative (Neg-Trace); Specific Gravity, Urine 1.012 (1.002-1.036); Squamous Epithelial None Seen HPF (0-3); Urobilinogen Normal mg/dL (Less than 2); WBC/HPF 0-3 HPF (0-3)
[2022-05-06] MEDS: Nicotine 14 MG PATCH TD SCH (03:23)
[2022-05-06] MEDS ORDERED: Piperacillin/Tazobactam 3.375 GM in Sodium Chloride 0.9% 100 ML IVPB SCH (05:00)
[2022-05-06] MEDS: Piperacillin/Tazobactam 3.375 GM in Sodium Chloride 0.9% 100 ML IVPB SCH ×2 (05:38→18:18)
[2022-05-06] MEDS ORDERED: Dextrose 5% in Water 1,000 ML IV PRN (06:12)
[2022-05-06] MEDS ORDERED: Calcium Gluc 4.6 MEQ/10 ML (100 MG/ML) SLOW IVP SCH (06:45)
[2022-05-06] MEDS ORDERED: Sodium Bicarbonate 150 MEQ in Dextrose 5% in Water 1,000 ML IV SCH (07:00)
[2022-05-06 07:34] LABS: #Eosinphils 0.2 thou/uL (0.0-0.7); #Lymphocytes 1.3 thou/uL (1.20-3.40); #Monocytes 0.5 thou/uL (0.11-0.59); #Neutrophils 2.6 thou/uL (1.40-6.50); %Basophils 0.5 % (0.0-1.0); %Eosinophils 4.7 % (0.0-10.0); %Lymphocytes 28.5 % (21.0-51.0); %Monocytes 10.5 % (0.0-10.0); %Neutrophils 55.8 % (42.0-75.0); Hemoglobin 7.2 g/dL (12.0-16.0); Mean Corpuscular HGB CONC 33.3 g/dL (32.0-36.0); Mean Corpuscular Hemoglobin 32.3 pg (27.0-31.0); Mean Corpuscular Volume 97.1 fL (78.0-98.0); Mean Platelet Volume 9.6 fL (7.4-10.4); Platelet Count 120 thou/uL (130-400); RBC Distribution Width 14.2 % (11.5-14.5); Red Blood Cell (RBC) Count 2.24 mill/uL (4.20-5.40); White Blood Cell (WBC) Count 4.6 thou/uL (4.8-10.8)
[2022-05-06 07:51] LABS: ALT (SGPT) 10 U/L (8-55); AST (SGOT) 17 U/L (5-34); Albumin 3.4 g/dL (3.5-5.0); Alkaline Phosphatase 47 U/L (40-110); Bilirubin, Direct 0.2 mg/dL (0.1-0.3); Bilirubin, Total 0.4 mg/dL (0.2-1.2); Protein, Total 7.5 g/dL (6.0-8.3)
[2022-05-06 07:53] LABS: Anion Gap 16 mmol/L (10-20); BUN (Urea Nitrogen) 76 mg/dL (9.8-20.1); Calc. Creatinine Clearance 22 mL/min (70-130); Calcium 8.6 mg/dL (7.8-10.44); Carbon Dioxide 13 mmol/L (22-29); Chloride 112 mmol/L (98-107); Estimated GFR 22; Glucose 95 mg/dL (70-105); Potassium 4.9 mmol/L (3.5-5.1); Sodium 136 mmol/L (136-145)
[2022-05-06] MEDS ORDERED: Sodium Chloride 0.9% 500 ML IV SCH ×2 (10:00→12:00)
[2022-05-06] MEDS ORDERED: Pantoprazole 40 MG VIAL IVP SCH (10:00)
[2022-05-06 10:45] LABS: #Eosinphils 0.2 thou/uL (0.0-0.7); #Lymphocytes 0.9 thou/uL (1.20-3.40); #Monocytes 0.5 thou/uL (0.11-0.59); #Neutrophils 2.1 thou/uL (1.40-6.50); %Basophils 0.3 % (0.0-1.0); %Eosinophils 5.5 % (0.0-10.0); %Lymphocytes 25.2 % (21.0-51.0); %Monocytes 12.5 % (0.0-10.0); %Neutrophils 56.6 % (42.0-75.0); Hemoglobin 8.3 g/dL (12.0-16.0); Mean Corpuscular HGB CONC 34.1 g/dL (32.0-36.0); Mean Corpuscular Hemoglobin 32.8 pg (27.0-31.0); Mean Corpuscular Volume 96.2 fL (78.0-98.0); Mean Platelet Volume 9.4 fL (7.4-10.4); Platelet Count 90 thou/uL (130-400); RBC Distribution Width 14.1 % (11.5-14.5); Red Blood Cell (RBC) Count 2.52 mill/uL (4.20-5.40); White Blood Cell (WBC) Count 3.7 thou/uL (4.8-10.8)
[2022-05-06 10:48] LABS: ALT (SGPT) 9 U/L (8-55); AST (SGOT) 15 U/L (5-34); Albumin 3.2 g/dL (3.5-5.0); Alkaline Phosphatase 42 U/L (40-110); Anion Gap 15 mmol/L (10-20); BUN (Urea Nitrogen) 75 mg/dL (9.8-20.1); Bilirubin, Total 0.6 mg/dL (0.2-1.2); Calc. Creatinine Clearance 21 mL/min (70-130); Calcium 8.8 mg/dL (7.8-10.44); Carbon Dioxide 14 mmol/L (22-29); Chloride 113 mmol/L (98-107); Estimated GFR 21; Globulin 3.8 g/dL (2.4-3.5); Glucose 98 mg/dL (70-105); Potassium 5.3 mmol/L (3.5-5.1); Sodium 137 mmol/L (136-145)
[2022-05-06] MEDS ORDERED: Octreotide Acetate 1,250 MCG in Sodium Chloride 0.9% 250 ML 250 ML IVPB SCH (11:00)
[2022-05-06] MEDS: Albumin 25% 25 GM/100 ML BOT IVPB SCH ×2 (11:30→17:40)
[2022-05-06] MEDS ORDERED: Ketamine 50 MG/ML (10ML VIAL) ONE (13:22)
[2022-05-06] MEDS ORDERED: Lactated Ringer's 500 ML IV SCH (14:00)
[2022-05-06] MEDS ORDERED: Phenylephrine 10 MG/ML VIAL ONE (14:40)
[2022-05-06] MEDS ORDERED: PROPOFOL 200 MG/20 ML VIAL ONE (14:40)
[2022-05-06] MEDS ORDERED: Multivitamins, Adult 10 ML, Folic Acid 1 MG, Thiamine HCl 100 MG in Dextrose 5 %-0.45 %... IV SCH (15:15)
[2022-05-06] MEDS: Acetaminophen 325 MG TAB PO PRN (19:28)
[2022-05-06] MEDS: Pantoprazole 40 MG VIAL IVP SCH (19:33)
[2022-05-06] MEDS: Multivitamins, Adult 10 ML, Folic Acid 1 MG, Thiamine HCl 100 MG in Dextrose 5 %-0.45 %... IV SCH (19:33)
[2022-05-06] MEDS ORDERED: Morphine 2 MG/ML VIAL SLOW IVP SCH (21:00)
[2022-05-06] MEDS ORDERED: Simethicone Chewable 80 MG TAB PO SCH (21:00)
[2022-05-07] MEDS: Nicotine 14 MG PATCH TD SCH (01:54)
[2022-05-07 04:06] LABS: #Eosinphils 0.1 thou/uL (0.0-0.7); #Lymphocytes 0.9 thou/uL (1.20-3.40); #Monocytes 0.3 thou/uL (0.11-0.59); #Neutrophils 4.3 thou/uL (1.40-6.50); %Basophils 0.2 % (0.0-1.0); %Eosinophils 1.3 % (0.0-10.0); %Lymphocytes 16.4 % (21.0-51.0); %Monocytes 5.8 % (0.0-10.0); %Neutrophils 76.3 % (42.0-75.0); Hemoglobin 12.6 g/dL (12.0-16.0); Mean Corpuscular Hemoglobin 31.8 pg (27.0-31.0); Mean Corpuscular Volume 93.6 fL (78.0-98.0); Platelet Count 92 thou/uL (130-400); RBC Distribution Width 15.1 % (11.5-14.5); Red Blood Cell (RBC) Count 3.96 mill/uL (4.20-5.40); White Blood Cell (WBC) Count 5.6 thou/uL (4.8-10.8)
[2022-05-07 04:20] LABS: ALT (SGPT) 9 U/L (8-55); AST (SGOT) 15 U/L (5-34); Albumin 3.2 g/dL (3.5-5.0); Alkaline Phosphatase 43 U/L (40-110); Anion Gap 17 mmol/L (10-20); BUN (Urea Nitrogen) 62 mg/dL (9.8-20.1); Bilirubin, Direct 0.3 mg/dL (0.1-0.3); Bilirubin, Total 0.7 mg/dL (0.2-1.2); Calc. Creatinine Clearance 23 mL/min (70-130); Calcium 8.6 mg/dL (7.8-10.44); Carbon Dioxide 12 mmol/L (22-29); Chloride 112 mmol/L (98-107); Estimated GFR 23; Glucose 195 mg/dL (70-105); Potassium 5.4 mmol/L (3.5-5.1); Sodium 136 mmol/L (136-145)
[2022-05-07] MEDS: Piperacillin/Tazobactam 3.375 GM in Sodium Chloride 0.9% 100 ML IVPB SCH ×2 (05:19→17:23)
[2022-05-07] MEDS: Pantoprazole 40 MG VIAL IVP SCH ×2 (08:31→19:27)
[2022-05-07] MEDS ORDERED: Sodium Bicarbonate 150 MEQ in Dextrose 5% in Water 1,000 ML IV SCH (08:45)
[2022-05-07] MEDS: Sodium Bicarbonate 150 MEQ in Dextrose 5% in Water 1,000 ML IV SCH ×2 (09:59→19:26)
[2022-05-07] MEDS: Albumin 25% 25 GM/100 ML BOT IVPB SCH ×3 (10:00→20:27)
[2022-05-07] MEDS: Acetaminophen 325 MG TAB PO PRN (14:17)
[2022-05-07] MEDS ORDERED: traMADol HCl 50 MG TAB PO PRN (17:39)
[2022-05-07] MEDS: traMADol HCl 50 MG TAB PO PRN (18:20)
[2022-05-07] MEDS: Multivitamins, Adult 10 ML, Folic Acid 1 MG, Thiamine HCl 100 MG in Dextrose 5 %-0.45 %... IV SCH (20:27)
[2022-05-08] MEDS: Albumin 25% 25 GM/100 ML BOT IVPB SCH (02:12)
[2022-05-08] MEDS: Nicotine 14 MG PATCH TD SCH (02:12)
[2022-05-08] MEDS: Sodium Bicarbonate 150 MEQ in Dextrose 5% in Water 1,000 ML IV SCH ×3 (02:12→22:09)
[2022-05-08] MEDS: traMADol HCl 50 MG TAB PO PRN ×3 (02:51→22:22)
[2022-05-08] MEDS: Piperacillin/Tazobactam 3.375 GM in Sodium Chloride 0.9% 100 ML IVPB SCH ×3 (05:34→21:06)
[2022-05-08 06:41] LABS: #Eosinphils 0.1 thou/uL (0.0-0.7); #Lymphocytes 0.7 thou/uL (1.20-3.40); #Monocytes 0.2 thou/uL (0.11-0.59); #Neutrophils 1.8 thou/uL (1.40-6.50); %Basophils 0.5 % (0.0-1.0); %Eosinophils 2.7 % (0.0-10.0); %Monocytes 7.2 % (0.0-10.0); %Neutrophils 63.6 % (42.0-75.0); Hemoglobin 9.5 g/dL (12.0-16.0); Mean Corpuscular HGB CONC 33.4 g/dL (32.0-36.0); Mean Corpuscular Hemoglobin 31.4 pg (27.0-31.0); Mean Corpuscular Volume 93.9 fL (78.0-98.0); Mean Platelet Volume 9.8 fL (7.4-10.4); Platelet Count 59 thou/uL (130-400); RBC Distribution Width 15.2 % (11.5-14.5); Red Blood Cell (RBC) Count 3.03 mill/uL (4.20-5.40); White Blood Cell (WBC) Count 2.8 thou/uL (4.8-10.8)
[2022-05-08 07:10] LABS: Potassium 2.8 mmol/L (3.5-5.1)
[2022-05-08 07:17] LABS: Anion Gap 13 mmol/L (10-20); BUN (Urea Nitrogen) 34 mg/dL (9.8-20.1); Calc. Creatinine Clearance 31 mL/min (70-130); Carbon Dioxide 18 mmol/L (22-29); Chloride 98 mmol/L (98-107); Estimated GFR 33; Glucose Greater than 800 mg/dL (70-105); HIV (1/2) Antibody/Antigen Non-Reactive (NonReactive); HIV 1/2 INDEX 0.21 S/CO (<1.00); Sodium 126 mmol/L (136-145)
[2022-05-08 08:05] LABS: Anion Gap 15 mmol/L (10-20); BUN (Urea Nitrogen) 41 mg/dL (9.8-20.1); Calc. Creatinine Clearance 33 mL/min (70-130); Calcium 8.6 mg/dL (7.8-10.44); Carbon Dioxide 23 mmol/L (22-29); Chloride 102 mmol/L (98-107); Estimated GFR 35; Glucose 143 mg/dL (70-105); Potassium 3.5 mmol/L (3.5-5.1); Sodium 136 mmol/L (136-145)
[2022-05-08] MEDS: Pantoprazole 40 MG VIAL IVP SCH ×2 (08:34→21:06)
[2022-05-08 10:23] LABS: Lipase 36 U/L (8-78)
[2022-05-08 12:07] LABS: Campy jejuni + coli by PCR Negative (Negative); STEC Shiga Toxin 1+2 Negative (Negative); Salmonella spp. by PCR Negative (Negative); Shigella spp + EIEC by PCR Negative (Negative)
[2022-05-08] MEDS ORDERED: HumaLOG 300 UNITS/3 ML VIAL SC PRN ×2 (12:36)
[2022-05-08] MEDS: Multivitamins, Adult 10 ML, Folic Acid 1 MG, Thiamine HCl 100 MG in Dextrose 5 %-0.45 %... IV SCH (22:09)
[2022-05-09] MEDS: Nicotine 14 MG PATCH TD SCH (02:08)
[2022-05-09 03:46] LABS: #Eosinphils 0.1 thou/uL (0.0-0.7); #Lymphocytes 0.9 thou/uL (1.20-3.40); #Monocytes 0.5 thou/uL (0.11-0.59); #Neutrophils 3.6 thou/uL (1.40-6.50); %Basophils 0.4 % (0.0-1.0); %Eosinophils 1.9 % (0.0-10.0); %Lymphocytes 17.6 % (21.0-51.0); %Monocytes 9.5 % (0.0-10.0); %Neutrophils 70.6 % (42.0-75.0); Hemoglobin 11.2 g/dL (12.0-16.0); Mean Corpuscular HGB CONC 33.9 g/dL (32.0-36.0); Mean Corpuscular Hemoglobin 31.7 pg (27.0-31.0); Mean Corpuscular Volume 93.5 fL (78.0-98.0); Mean Platelet Volume 10.1 fL (7.4-10.4); Platelet Count 61 thou/uL (130-400); RBC Distribution Width 14.9 % (11.5-14.5); Red Blood Cell (RBC) Count 3.54 mill/uL (4.20-5.40); White Blood Cell (WBC) Count 5.1 thou/uL (4.8-10.8)
[2022-05-09] MEDS: traMADol HCl 50 MG TAB PO PRN ×2 (04:06→09:45)
[2022-05-09 04:07] LABS: Anion Gap 16 mmol/L (10-20); BUN (Urea Nitrogen) 29 mg/dL (9.8-20.1); Calc. Creatinine Clearance 37 mL/min (70-130); Calcium 8.6 mg/dL (7.8-10.44); Carbon Dioxide 29 mmol/L (22-29); Chloride 93 mmol/L (98-107); Estimated GFR 41; Glucose 124 mg/dL (70-105); Potassium 3.2 mmol/L (3.5-5.1); Sodium 135 mmol/L (136-145)
[2022-05-09 05:06] VITALS: BMI 26.9
[2022-05-09] MEDS: Piperacillin/Tazobactam 3.375 GM in Sodium Chloride 0.9% 100 ML IVPB SCH ×3 (05:51→22:11)
[2022-05-09] MEDS: Sodium Bicarbonate 150 MEQ in Dextrose 5% in Water 1,000 ML IV SCH (06:51)
[2022-05-09] MEDS ORDERED: Potassium Chloride 20 MEQ TAB PO SCH (08:45)
[2022-05-09 09:02] LABS: Hemoglobin A1c 4.9 % (4.0-6.0)
[2022-05-09] MEDS: Folic Acid 1 MG TAB PO SCH (09:44)
[2022-05-09] MEDS: Multivitamin W/ Minerals 1 TAB PO SCH (09:44)
[2022-05-09] MEDS: Pantoprazole 40 MG VIAL IVP SCH ×2 (09:44→22:11)
[2022-05-09] MEDS: Thiamine 100 MG TAB PO SCH (09:45)
[2022-05-09] MEDS ORDERED: Lactated Ringer's 1,000 ML IV SCH (11:30)
[2022-05-09] MEDS ORDERED: Ondansetron ODT 4 MG TAB PO PRN (14:56)
[2022-05-09] MEDS: Lactated Ringer's 1,000 ML IV SCH (15:19)
[2022-05-09] MEDS: Dextrose 50% Abboject 50 ML SYRINGE SLOW IVP PRN (16:28)
[2022-05-09 17:24] LABS: Glucose 244 mg/dL (70-105)
[2022-05-09 17:53] VITALS: BP 130/103
[2022-05-09] MEDS: HYDROcodone/Acetaminophen 5/325 mg Tablet PO PRN ×2 (18:01→23:16)
[2022-05-10] MEDS: Lactated Ringer's 1,000 ML IV SCH ×2 (01:33→18:04)
[2022-05-10] MEDS: Nicotine 14 MG PATCH TD SCH (02:03)
[2022-05-10 04:38] LABS: Anion Gap 19 mmol/L (10-20); BUN (Urea Nitrogen) 24 mg/dL (9.8-20.1); Calc. Creatinine Clearance 37 mL/min (70-130); Calcium 8.3 mg/dL (7.8-10.44); Carbon Dioxide 27 mmol/L (22-29); Chloride 93 mmol/L (98-107); Estimated GFR 37; Glucose 86 mg/dL (70-105); Potassium 3.5 mmol/L (3.5-5.1); Sodium 135 mmol/L (136-145)
[2022-05-10] MEDS: Piperacillin/Tazobactam 3.375 GM in Sodium Chloride 0.9% 100 ML IVPB SCH ×2 (05:09→18:08)
[2022-05-10 05:29] LABS: #Eosinphils 0.1 thou/uL (0.0-0.7); #Monocytes 0.6 thou/uL (0.11-0.59); #Neutrophils 4.6 thou/uL (1.40-6.50); %Basophils 0.4 % (0.0-1.0); %Lymphocytes 27.6 % (21.0-51.0); %Monocytes 8.1 % (0.0-10.0); %Neutrophils 62.9 % (42.0-75.0); Hemoglobin 11.4 g/dL (12.0-16.0); Large Platelets SLIGHT; MDiff Complete? YES; Mean Corpuscular HGB CONC 33.2 g/dL (32.0-36.0); Mean Corpuscular Hemoglobin 31.5 pg (27.0-31.0); Mean Corpuscular Volume 94.9 fL (78.0-98.0); Platelet Count 72 thou/uL (130-400); Platelet Morphology Comment Appears Decreased; RBC Distribution Width 15.1 % (11.5-14.5); White Blood Cell (WBC) Count 7.4 thou/uL (4.8-10.8)
[2022-05-10] MEDS ORDERED: Dextrose 50% Abboject 50 ML SYRINGE ONE (05:35)
[2022-05-10] MEDS: Dextrose 50% Abboject 50 ML SYRINGE SLOW IVP PRN (05:45)
[2022-05-10 08:14] VITALS: TEMP 96.7
[2022-05-10] MEDS ORDERED: Enoxaparin Sodium 30 MG/0.3 ML SYRINGE SC SCH (09:00)
[2022-05-10] MEDS ORDERED: Bupivacaine/Epinephrine 0.25% 30 ML VIAL ONE (10:59)
[2022-05-10] MEDS ORDERED: fentaNYL Citrate/PF 100 MCG/2 ML SYRINGE ONE (11:26)
[2022-05-10] MEDS ORDERED: HYDROmorphone 0.5 MG/0.5 ML SYRINGE ONE (11:26)
[2022-05-10] MEDS ORDERED: SUGAMMADEX SODIUM 200 MG/2 ML VIAL ONE (11:27)
[2022-05-10] MEDS ORDERED: Lidocaine 1% MPF 2 ML VIAL ONE (11:36)
[2022-05-10] MEDS ORDERED: PROPOFOL 200 MG/20 ML VIAL ONE (11:36)
[2022-05-10] MEDS ORDERED: Succinylcholine 200 MG/10 ml SYRINGE FS ONE (11:36)
[2022-05-10] MEDS ORDERED: EPINEPHrine 1 MG/10 ML Abboject SYRINGE ONE ×3 (11:36→22:26)
[2022-05-10] MEDS ORDERED: Rocuronium Bromide 10 MG/ML (10ML VIAL) ONE (11:36)
[2022-05-10] MEDS ORDERED: Calcium Chloride 1 GM/10 ML Abboject SYRINGE ONE ×2 (11:36→22:26)
[2022-05-10] MEDS ORDERED: Phenylephrine 10 MG/ML VIAL ONE (11:36)
[2022-05-10] MEDS ORDERED: Piperacillin/Tazobactam 3.375 GM VIAL ONE (11:55)
[2022-05-10] MEDS ORDERED: Albumin 5% 500 ML ONE (12:00)
[2022-05-10] MEDS ORDERED: EPINEPHrine 1 MG/ML AMP ONE (12:10)
[2022-05-10] MEDS ORDERED: Albuterol Sulfate HFA (OR ONLY) ONE (12:12)
[2022-05-10] MEDS ORDERED: Midazolam HCl 2 mg/2 ml Vial ONE (12:17)
[2022-05-10] MEDS ORDERED: Sodium Bicarb 50 MEQ/50 ML VIAL ONE (12:20)
[2022-05-10] MEDS ORDERED: Milrinone 10 MG/10 ML VIAL ONE (12:31)
[2022-05-10] MEDS: Folic Acid 1 MG TAB PO SCH (12:39)
[2022-05-10] MEDS: Pantoprazole 40 MG VIAL IVP SCH ×2 (12:40→21:49)
[2022-05-10] MEDS: Multivitamin W/ Minerals 1 TAB PO SCH (12:40)
[2022-05-10] MEDS: Thiamine 100 MG TAB PO SCH (12:40)
[2022-05-10 13:00] LABS: Actual Bicarbonate (HCO3a) 15.6 mEq/L (22-28); Base Excess (BEa) -12.5 mEq/L (-2.0 to +3.0); CO2 Tension 44.9 mmHg (35.0-45.0); Calcium, Ionized (arterial) 1.16 mmol/L (1.12-1.30); Carboxyhemoglobin (COHb) 0.3 gm% (0.0-3.0); Hemoglobin (Hb) 10.3 g/dL (12.0-16.0); O2 Tension (PaO2), arterial 63.5 mmHg (80.0-100.0); Potassium - ABG Lab 3.28 mmol/L (3.70-5.30)
[2022-05-10 13:04] LABS: ALV-art Gradient 593.375 mmHg (0-20); Puncture Site Arterial Line; pH, Arterial 7.16 (7.35-7.45)
[2022-05-10] MEDS ORDERED: Propofol 1,000 MG/100 ML VIAL IV ONE (13:13)
[2022-05-10] MEDS ORDERED: Ventilator Sedation Protocol 1 EACH FS SCH (13:15)
[2022-05-10] MEDS ORDERED: Fentanyl CADD 100 ML IV SCH (13:30)
[2022-05-10] MEDS ORDERED: Fentanyl BOLUS 250 ML IVPB PRN (13:30)
[2022-05-10] MEDS ORDERED: DISCONTINUE PREVIOUS NARCOTIC PAIN MEDICATIONS AND BENZODIAZEPINES FS SCH (13:30)
[2022-05-10] MEDS ORDERED: Morphine 4 MG/ML VIAL SLOW IVP PRN (13:30)
[2022-05-10] MEDS ORDERED: Propofol 1,000 MG/100 ML VIAL IV PRN (13:30)
[2022-05-10] MEDS ORDERED: Propofol BOLUS 1,000 MG/100 ML VIAL IV PRN (13:30)
[2022-05-10] MEDS ORDERED: ALTEPLASE (TPA) 50 MG/50 ML VIAL IVP SCH ×2 (14:15→15:45)
[2022-05-10] MEDS ORDERED: EPINEPHrine 1 MG/ML AMP IVP SCH (14:15)
[2022-05-10 14:16] LABS: #Basophils 0.1 thou/uL (0.0-0.2); #Eosinphils 0.2 thou/uL (0.0-0.7); #Lymphocytes 3.4 thou/uL (1.20-3.40); #Monocytes 0.4 thou/uL (0.11-0.59); #Neutrophils 4.8 thou/uL (1.40-6.50); %Basophils 0.6 % (0.0-1.0); %Eosinophils 2.1 % (0.0-10.0); %Lymphocytes 38.5 % (21.0-51.0); %Monocytes 4.4 % (0.0-10.0); %Neutrophils 54.4 % (42.0-75.0); Mean Corpuscular Hemoglobin 32.4 pg (27.0-31.0); Mean Corpuscular Volume 95.2 fL (78.0-98.0); Mean Platelet Volume 10.9 fL (7.4-10.4); Platelet Count 91 thou/uL (130-400); RBC Distribution Width 14.9 % (11.5-14.5); Red Blood Cell (RBC) Count 3.09 mill/uL (4.20-5.40); White Blood Cell (WBC) Count 8.8 thou/uL (4.8-10.8)
[2022-05-10 14:24] LABS: INR-International Normal Ratio 1.6; PTT 42.3 sec (22.9-36.1); Prothrombin Time 19.3 sec (12.0-14.7)
[2022-05-10] MEDS ORDERED: NOREPINEPHRINE 8 MG/250 ML-D5W 250 ML IVPB SCH (14:30)
[2022-05-10] MEDS ORDERED: Sodium Bicarb 50 MEQ/50 ML Abboject 8.4% SYRINGE IVP SCH (14:30)
[2022-05-10 14:32] LABS: ALT (SGPT) 16 U/L (8-55); AST (SGOT) 36 U/L (5-34); Albumin 3.3 g/dL (3.5-5.0); Alkaline Phosphatase 33 U/L (40-110); Anion Gap 26 mmol/L (10-20); BUN (Urea Nitrogen) 26 mg/dL (9.8-20.1); Bilirubin, Total 0.9 mg/dL (0.2-1.2); Calc. Creatinine Clearance 36 mL/min (70-130); Calcium 8.3 mg/dL (7.8-10.44); Carbon Dioxide 19 mmol/L (22-29); Chloride 99 mmol/L (98-107); Estimated GFR 35; Globulin 2.4 g/dL (2.4-3.5); Glucose 150 mg/dL (70-105); Magnesium 1.5 mg/dL (1.6-2.6); Potassium 3.2 mmol/L (3.5-5.1); Protein, Total 5.7 g/dL (6.0-8.3); Sodium 141 mmol/L (136-145)
[2022-05-10] MEDS ORDERED: Fentanyl CADD 100 ML ONE (14:57)
[2022-05-10] MEDS ORDERED: Heparin 25,000 units/D5W 500 ML IVPB SCH (15:00)
[2022-05-10 15:12] LABS: CKMB 19.1 ng/mL (0-6.6)
[2022-05-10 15:22] LABS: Actual Bicarbonate (HCO3a) 20.3 mEq/L (22-28); Base Excess (BEa) -2.2 mEq/L (-2.0 to +3.0); Calcium, Ionized (arterial) 1.02 mmol/L (1.12-1.30); Carboxyhemoglobin (COHb) 0.3 gm% (0.0-3.0); Hemoglobin (Hb) 11.2 g/dL (12.0-16.0); O2 Tension (PaO2), arterial 74.9 mmHg (80.0-100.0); Potassium - ABG Lab 3.16 mmol/L (3.70-5.30); pH, Arterial 7.48 (7.35-7.45)
[2022-05-10 15:23] LABS: Puncture Site Arterial Line
[2022-05-10] MEDS ORDERED: Heparin 10,000 UNITS/ 10 ML VIAL SLOW IVP SCH (16:00)
[2022-05-10 16:36] LABS: A/G Ratio 1.3 (0.7-1.7); Albumin 3.9 g/dL (2.9-4.4); Alpha 1 0.2 g/dL (0.0-0.4); Alpha 2 0.6 g/dL (0.4-1.0); Beta 0.7 g/dL (0.7-1.3); Gamma 1.6 g/dL (0.4-1.8); M-Spike Not Observed g/dL (Not Observed)
[2022-05-10] MEDS ORDERED: Lactated Ringer's 1,000 ML IV SCH (16:45)
[2022-05-10] MEDS: Midazolam HCl 2 mg/2 ml Vial SLOW IVP PRN ×2 (16:52→20:07)
[2022-05-10] MEDS ORDERED: Potassium Chloride 10 MEQ in Premix Bag 1 BAG IVPB SCH (18:00)
[2022-05-10] MEDS ORDERED: Phenylephrine 40 MG in Sodium Chloride 0.9% 250 ML 250 ML IVPB SCH (20:45)
[2022-05-10] MEDS ORDERED: Phenylephrine 40 MG/NS 250 ML 40 MG in Premix Bag 1 BAG IVPB SCH (21:00)
[2022-05-10 21:55] LABS: Actual Bicarbonate (HCO3a) 9.3 mEq/L (22-28); Base Excess (BEa) -15.4 mEq/L (-2.0 to +3.0); Carboxyhemoglobin (COHb) 0.2 gm% (0.0-3.0); O2 Tension (PaO2), arterial 242.4 mmHg (80.0-100.0); pH, Arterial 7.32 (7.35-7.45)
[2022-05-10 22:00] LABS: CO2 Tension 18.3 mmHg (35.0-45.0); Hemoglobin (Hb) 5.5 g/dL (12.0-16.0); Puncture Site Arterial Line
[2022-05-10 22:01] LABS: ALV-art Gradient 447.725 mmHg (0-20)
[2022-05-10 22:03] LABS: Hemoglobin 5.4 g/dL (12.0-16.0)
[2022-05-10 22:04] LABS: Platelet Count 66 thou/uL (130-400)
[2022-05-10] MEDS ORDERED: Sodium Bicarb 50 MEQ/50 ML VIAL IVP SCH (22:15)
[2022-05-10] MEDS ORDERED: Sodium Bicarbonate 150 MEQ in Dextrose 5% in Water 1,000 ML IV SCH (22:15)
[2022-05-10 22:38] LABS: PTT Greater than 250.0 sec (22.9-36.1)
[2022-05-11] MEDS ORDERED: Piperacillin/Tazobactam 3.375 GM in Sodium Chloride 0.9% 100 ML IVPB SCH (02:00)
== END 2022-05-10 22:57 | disposition expired | DRG 420 ==
LOC: ERS 20:07 → 2NO 05-06 00:54 → OBSVTOIN 05-06 06:35 → IMCU/EMU 05-06 11:34 → CCU 05-10 12:34
PROVIDERS: ADMIT Internal Medicine; ATTEND Hospitalist
PROC: 0DB68ZX Excision of Stomach, Via Natural or Artificial Opening Endoscopic, Diagnostic (ICD-10-PCS; principal; 2022-05-06)
PROC: 30233N1 Transfusion of Nonautologous Red Blood Cells into Peripheral Vein, Percutaneous Approach (ICD-10-PCS; 2022-05-06)
PROC: 0DJU4ZZ Inspection of Omentum, Percutaneous Endoscopic Approach (ICD-10-PCS; 2022-05-10)
PROC: 02HV33Z Insertion of Infusion Device into Superior Vena Cava, Percutaneous Approach (ICD-10-PCS; 2022-05-10)
PROC: 03HY32Z Insertion of Monitoring Device into Upper Artery, Percutaneous Approach (ICD-10-PCS; 2022-05-10)
PROC: 3E04317 Introduction of Other Thrombolytic into Central Vein, Percutaneous Approach (ICD-10-PCS; 2022-05-10)
PROC: 5A12012 Performance of Cardiac Output, Single, Manual (ICD-10-PCS; 2022-05-10)
PROC: 3E043XZ Introduction of Vasopressor into Central Vein, Percutaneous Approach (ICD-10-PCS; 2022-05-10)
PROC: 0BH17EZ Insertion of Endotracheal Airway into Trachea, Via Natural or Artificial Opening (ICD-10-PCS; 2022-05-10)
PROC: 5A1935Z Respiratory Ventilation, Less than 24 Consecutive Hours (ICD-10-PCS; 2022-05-10)
DX: K80.00 Calculus of gallbladder with acute cholecystitis without obstruction (principal); I26.99 Other pulmonary embolism without acute cor pulmonale; J96.01 Acute respiratory failure with hypoxia; D61.818 Other pancytopenia; I50.32 Chronic diastolic (congestive) heart failure; N17.9 Acute kidney failure, unspecified; R18.8 Other ascites; E87.2 Acidosis; I31.3 Pericardial effusion (noninflammatory); Z20.822 Contact with and (suspected) exposure to COVID-19; E87.5 Hyperkalemia; R19.7 Diarrhea, unspecified; E83.42 Hypomagnesemia; I11.0 Hypertensive heart disease with heart failure; D72.819 Decreased white blood cell count, unspecified; M34.9 Systemic sclerosis, unspecified; F17.210 Nicotine dependence, cigarettes, uncomplicated; E86.0 Dehydration; K21.00 Gastro-esophageal reflux disease with esophagitis, without bleeding; K29.60 Other gastritis without bleeding; K74.60 Unspecified cirrhosis of liver; I95.9 Hypotension, unspecified; I46.8 Cardiac arrest due to other underlying condition; R57.8 Other shock; I27.20 Pulmonary hypertension, unspecified; R57.1 Hypovolemic shock; E88.09 Other disorders of plasma-protein metabolism, not elsewhere classified; I07.1 Rheumatic tricuspid insufficiency; Z53.8 Procedure and treatment not carried out for other reasons; D69.6 Thrombocytopenia, unspecified; I50.810 Right heart failure, unspecified; F10.10 Alcohol abuse, uncomplicated; D50.9 Iron deficiency anemia, unspecified; Z79.899 Other long term (current) drug therapy; Z87.01 Personal history of pneumonia (recurrent); Z90.49 Acquired absence of other specified parts of digestive tract; Z90.710 Acquired absence of both cervix and uterus
CPT/HCPCS: 36415; 36416; 36430; 70450; 71045; 71250; 74176; 76705; 80048; 80053; 80076; 81003; 81015; 82274; 82533; 82553; 82805; 83036; 83690; 83735; 83880; 84155; 84165; 84484; 85025; 85610; 85730; 86850; 86900; 86901; 87086; 87324; 87389; 87449; 87505; 88305; 93005; 93010; 93306; 94002; 96375; 96376; C1713; C9113; G0378; J0171; J0610; J1170; J1644; J1815; J2250; J2260; J2270; J2370; J2405; J2543; J2704; J2997; J3010; J3411; J3475; J3480; J3490; J7030; J7042; J7050; J7070; J7120; J7999; P9016; P9045; P9047; U0003; U0005